=== PATIENT | male | born 1950 | race Caucasian/White ===

== ENCOUNTER 2022-01-12 10:27 | Outpatient (CLI) | payer OTHER ==
[2022-01-12] MEDS ORDERED: BARIUM SULFATE 135 ML SUSP.RECON (E-Z-HD) PO ONE (11:48)
== END 2022-01-12 19:04 | disposition home or self-care (01) ==
LOC: SRD 10:27
DX: R09.89 Other specified symptoms and signs involving the circulatory and respiratory systems (principal)
CPT/HCPCS: 74220-TC